=== PATIENT | male | born 1990 | race Hispanic/Latino ===

== ENCOUNTER 2016-12-26 18:28 | Emergency (ER) | payer OTHER ==
[~2016-12-26] VITALS: Ht 177.8 cm; Wt 70.3 kg
[2016-12-26] MEDS ORDERED: BENADRYL 50MG C50 MG PO (18:56)
[2016-12-26] MEDS ORDERED: PREDNISONE50 MG PO (18:56)
[2016-12-26 19:10] VITALS: BP 127/78
== END 2016-12-26 19:10 | disposition home or self-care (01) | DRG 918 ==
LOC: ED 18:28
DX: T63.484A Toxic effect of venom of other arthropod, undetermined, initial encounter (principal)